=== PATIENT | female | born 1935 | race Native Hawaiian/Other Pacific Islander ===

== ENCOUNTER 2016-11-09 09:49 | Emergency (ER) | payer MEDICARE, BC ==
[2016-11-09 10:46] VITALS: TEMP 97.6
--- NOTE | 2016-11-09 12:00 | C.PDOC ---
History Of Present Illness 81 yr old female with PMHx of HTN, presents to the ER for evaluation of cough for the past few days and runny nose which turned into blood today. Patient also reports of chills since yesterday. Patient states she feels pain in her abdomen when she coughs. Patient denies fever, chest pain, SOB, nausea, vomiting , diarrhea, headache, weakness or numbness. Time Seen by Provider: 11/09/16 10:55 Chief Complaint (Nursing): ENT Problem History Per: Patient History/Exam Limitations: None Onset/Duration Of Symptoms: Days (Few) Current Symptoms Are (Timing): Still Present Past Medical History Reviewed: Historical Data, Nursing Documentation, Vital Signs Vital Signs: Last Vital Signs Temp 97.6 F 11/09/16 10:42 Pulse 80 11/09/16 12:28 Resp 20 11/09/16 12:28 BP 120/62 11/09/16 12:28 Pulse Ox 96 11/09/16 12:34 - Medical History PMH: Arthritis, HTN, Osteoporosis - [facility] Procedures ANT NASAL PACK FOR EPIST (11/18/14) Family History: States: No Known Family Hx - Social History Hx Tobacco Use: No Hx Alcohol Use: No Hx Substance Use: No - Immunization History Hx Tetanus Toxoid Vaccination: No Hx Influenza Vaccination: Yes Hx Pneumococcal Vaccination: No Review Of Systems Except As Marked, All Systems Reviewed And Found Negative. Constitutional: Positive for: Chills. Negative for: Fever ENT: Positive for: Other (Bleeding from the nose) Cardiovascular: Negative for: Chest Pain Respiratory: Positive for: Cough. Negative for: Shortness of Breath Gastrointestinal: Positive for: Abdominal Pain. Negative for: Nausea, Vomiting , Diarrhea Neurological: Negative for: Weakness, Numbness, Headache Physical Exam - Physical Exam Appears: Well, Non-toxic, No Acute Distress Skin: Warm, Dry Head: Atraumatic, Normacephalic Nose: Epistaxis Oral Mucosa: Moist Neck: Normal, Normal ROM, Supple Chest: Symmetrical, No Tenderness Cardiovascular: Rhythm Regular, No Murmur Respiratory: Normal Breath Sounds, No Rales, No Rhonchi, No Stridor, No Wheezing Extremity: Normal ROM, No Swelling Neurological/Psych: Oriented x3, Normal Speech, Normal Motor ED Course And Treatment O2 Sat by Pulse Oximetry: 96 - Other Rad CXR X-Ray: Viewed By Me, Read By Radiologist Interpretation: HISTORY: cough. COMPARISON: None available. TECHNIQUE: Chest PA and lateral. FINDINGS: LUNGS: Subtle infiltrate in the right lower lobe. Please note that chest x-ray has limited sensitivity for the detection of pulmonary masses. PLEURA: No significant pleural effusion identified. No definite pneumothorax . CARDIOVASCULAR: Heart size appears within normal limits. Atherosclerotic calcifications of the aorta. OSSEOUS STRUCTURES: Osseous demineralization. Degenerative changes. VISUALIZED UPPER ABDOMEN: Unremarkable. OTHER FINDINGS: None. IMPRESSION: Subtle infiltrate in the right lower lobe. Recommend follow-up to ensure complete resolution. Medical Decision Making Medical Decision Making: PLAN: * CXR * Tessalon Perles PO * Tylenol PO Disposition Counseled Patient/Family Regarding: Studies Performed, Diagnosis, Need For Followup, Rx Given - Disposition Disposition: HOME/ ROUTINE Disposition Time: 12:01 Condition: STABLE Additional Instructions: Take medication for the cough. Follow up with your doctor. Leave the gauze in your nose for a few more hours. Prescriptions: 0.9 % Sodium Chloride [Nasal Mist] 126 ml NS QID #1 bottle Benzonatate [Tessalon Perles] 200 mg PO TID #24 sgl Instructions: Viral Syndrome (ED) Forms: General Discharge Instructions - POA Present On Arrival: None - Clinical Impression Clinical Impression: Epistaxis, Viral syndrome - Scribe Statement The provider has reviewed the documentation as recorded by the Peteribe Luzma Smith Provider Attestation: All medical record entries made by the Peteribe were at my direction and personally dictated by me. I have reviewed the chart and agree that the record accurately reflects my personal performance of the history, physical exam, medical decision making, and the department course for this patient. I have also personally directed, reviewed, and agree with the discharge instructions and disposition.
--- NOTE | 2016-11-09 12:05 | RAD ---
HISTORY: cough COMPARISON: None available. TECHNIQUE: Chest PA and lateral FINDINGS: LUNGS: Subtle infiltrate in the right lower lobe. Please note that chest x-ray has limited sensitivity for the detection of pulmonary masses. PLEURA: No significant pleural effusion identified. No definite pneumothorax . CARDIOVASCULAR: Heart size appears within normal limits. Atherosclerotic calcifications of the aorta. OSSEOUS STRUCTURES: Osseous demineralization. Degenerative changes. VISUALIZED UPPER ABDOMEN: Unremarkable. OTHER FINDINGS: None. IMPRESSION: Subtle infiltrate in the right lower lobe. Recommend follow-up to ensure complete resolution.
[2016-11-09 12:28] VITALS: BP 120/62; PULSE 80; RESP 20
[2016-11-09 12:34] VITALS: O2SAT 96
== END 2016-11-09 12:42 | disposition home or self-care (01) ==
LOC: C.ER 09:49
DX: R04.0 Epistaxis (principal); B34.9 Viral infection, unspecified

== ENCOUNTER 2017-10-08 07:29 | Day surgery (SDC) | payer MEDICARE, BC ==
[2017-10-07 16:35] VITALS: BMI 29.0
[2017-10-08 08:01] LABS: BASO % 0.8 % (0.0-2.0); EOS # 0.1 K/uL (0.0-0.7); EOS % 2.2 % (0.0-4.0); HEMOGLOBIN 12.3 g/dL (11.0-16.0); LYMPH # 1.4 K/uL (1.0-4.3); LYMPH % 32.3 % (20.0-40.0); MEAN CELL VOLUME 89.6 fL (81.0-99.0); MEAN CORPUSCULAR HEMOGLOBIN 30.6 pg (27.0-31.0); MEAN CORPUSCULAR HGB CONC 34.2 g/dL (33.0-37.0); MEAN PLATELET VOLUME 11.2 fL (7.2-11.7); MONO # 0.6 K/uL (0.0-0.8); NEUT # 2.3 K/uL (1.8-7.0); NEUT % 50.7 % (50.0-75.0); NRBC % 0.1 % (0.0-2.0); RBC 4.02 Mil/uL (3.80-5.20); RED CELL DISTRIBUTION WIDTH 13.2 % (11.5-14.5); WHITE BLOOD COUNT 4.5 K/uL (4.8-10.8)
[2017-10-08 08:11] LABS: BLOOD UREA NITROGEN 9 mg/dL (7-17); CALCIUM 9.5 mg/dl (8.6-10.4); GFR AFRICAN-AMERICAN > 60; GFR NON-AFRICAN AMERICAN > 60
[2017-10-08 08:42] LABS: PROTHROMBIN TIME 11.4 SECONDS (9.7-12.2)
[2017-10-08] MEDS ORDERED: Midazolam 2 MG/2 ML VIAL ONE (09:27)
[2017-10-08] MEDS ORDERED: Iodixanol 320 MG/ML 200 ML BOTTLE IV ONE (09:28)
[2017-10-08] MEDS ORDERED: Verapamil 2 ML ONE (11:10)
[2017-10-08 11:49] LABS: VENOUS BLOOD GAS BASE EXCESS -1.7 mmol/L (0.0-2.0); VENOUS BLOOD GAS PCO2 38 mmHg (40-60); VENOUS BLOOD GAS PO2 34 mm/Hg (30-55); VENOUS BLOOD PH 7.39 (7.32-7.43)
[2017-10-08 11:53] LABS: ARTERIAL BLOOD GAS HCO3 23.8 mmol/L (21-28); ARTERIAL BLOOD GAS HEMOGLOBIN 10.8 g/dL (11.7-17.4); ARTERIAL BLOOD GAS O2 SAT 97.2 % (95-98); ARTERIAL BLOOD GAS PCO2 35 mm/Hg (35-45); ARTERIAL BLOOD GAS PH 7.42 (7.35-7.45); ARTERIAL BLOOD GAS PO2 75 mm/Hg (80-100); ARTERIAL BLOOD GAS TCO2 23.8 mmol/L (22-28)
[2017-10-08] MEDS ORDERED: Sodium Chloride 0.9% 500 ML IV SCH (12:15)
[2017-10-08 13:24] LABS: HDL CHOLESTEROL 45 mg/dL (30-70)
[2017-10-08 13:35] LABS: LDL CHOLESTEROL 176 mg/dL (0-129)
--- NOTE | 2017-10-08 23:32 | CARD ---
APPROVED REPORT EXAM: Two-dimensional and M-mode echocardiogram with Doppler and color Doppler. Other Information Quality : GoodRhythm : INDICATION Dyspnea 2D DIMENSIONS IVSd1.1 (0.7-1.1cm)LVDd4.0 (3.9-5.9cm) LVOT Diameter2.0 (1.8-2.4cm)PWd1.2 (0.7-1.1cm) LVDs2.7 (2.5-4.0cm)FS (%) 31.4 % LVEF (%)59.9 (>50%) M-Mode DIMENSIONS Left Atrium (MM)3.50 (2.5-4.0cm)Aortic Root2.63 (2.2-3.7cm) Aortic Valve AoV Peak Yelepipx159.5cm/sAoV RBW844.6cmAO Peak GR.84mmHg LVOT Peak Mdrtkgml71.7cm/sLVOT VTI21.62cmAO Mean GR.57mmHg ANKITA (VMAX)0.82db2EMQ (VTI)0.50dg0DJ P 1/2 Emvd486rp Mitral Valve MV E Tjubahgs030.3cm/sMV E Peak Gr.17mmHgMV A Sjjpwkgb406.7cm/s MV E Mean Gr.9mmHgMV DZB09rjC/A ratio1.1 MVA (PHT)2.74cm2 TDI E/Lateral E'0.0E/Medial E'0.0 Tricuspid Valve TR Peak Mvyspijx051tb/sTR Peak Gr.94xsQmOVYA14pgIl LEFT VENTRICLE The left ventricle is normal size. There is borderline concentric left ventricular hypertrophy. Left ventricle systolic function is normal. The Ejection Fraction is 55-60%. There is normal LV segmental wall motion. The left ventricular diastolic function is normal. No left ventricle thrombus noted on this study. RIGHT VENTRICLE The right ventricle is normal size. The right ventricular systolic function is normal. ATRIA The left atrium size is normal. The right atrium size is normal. AORTIC VALVE The aortic valve is severely calcified. There is mild aortic regurgitation. There is severe valvular aortic stenosis. Calculated aortic valve area is 0.6 cm2 with maximum pressure gradient of 84 mmHg and mean pressure gradient of 57 mmHg. Cannot exclude aortic valvular vegetation. MITRAL VALVE Mitral annular calcification is severe. The mitral valve leaflets are thickened and calcified. There is no evidence of mitral valve prolapse. There is mildly reduced mitral valve opening. Calculated mitral valve area is 2.74 cm2 with maximum pressure gradient of 17 mmHg and mean pressure gradient of 9 mmHg. Mitral regurgitation is mild to moderate. TRICUSPID VALVE The tricuspid valve is normal. There is mild to moderate tricuspid regurgitation. Right ventricular systolic pressure is estimated at 40-50 mmHg. There is mild-moderate pulmonary hypertension. There is no tricuspid valve prolapse or vegetation. There is no tricuspid valve stenosis. PULMONIC VALVE The pulmonic valve is not well visualized. There is trace to mild pulmonic valvular regurgitation. GREAT VESSELS The aortic root is normal in size. The IVC is normal in size and collapses >50% with inspiration. PERICARDIAL EFFUSION There is no pericardial effusion. There is no pleural effusion. <Conclusion> The left ventricle is normal size. There is borderline concentric left ventricular hypertrophy. Left ventricle systolic function is normal. The Ejection Fraction is 55-60%. The left ventricular diastolic function is normal. The left and atrium size is normal. There is mild aortic regurgitation. There is critical valvular aortic stenosis. Calculated aortic valve area is 0.6 cm2 with maximum pressure gradient of 84 mmHg and mean pressure gradient of 57 mmHg. There is mild to moderate tricuspid regurgitation. There is mildly reduced mitral valve opening. Mitral regurgitation is mild to moderate. There is mild-moderate pulmonary hypertension. There is trace to mild pulmonic valvular regurgitation.
--- NOTE | 2017-10-11 07:58 | CARDCATH ---
PROCEDURE DATE: 10/08/2017 PROCEDURES: 1. Right heart catheterization. 2. Coronary angiogram. CLINICAL INDICATION: 1. Critical symptomatic aortic stenosis. 2. Dyspnea on minimal exertion. 3. Angina. 4. Hypertension. 5. Hyperlipidemia. REFERRING PHYSICIAN: Dr. Jeremías Covington. PERFORMING PHYSICIAN: Dr. Kiran Piña. PROCEDURE IN DETAIL: After informed consent, the patient was prepped and draped in the usual sterile fashion. Lidocaine 2% was given in the right wrist and right antecubital area for local anesthesia. Using micropuncture technique, 6-[place] sheath was introduced into right radial artery. A 7-[place] sheath was introduced into right brachial vein. A 6-inch JL4 diagnostic catheter engaged into left main coronary artery. Contrast injection and left coronary angiogram was performed. JR4 6-inch diagnostic catheter engaged into right coronary artery. Contrast injected and right coronary arteriogram was performed. Using [place] catheter, right heart catheterization was performed. The patient tolerated the procedure well. Postprocedure, Terumo radial band applied to right wrist with excellent hemostasis. Findings of the left heart catheterization, 1. Left main coronary artery is patent. 2. Proximal and distal LAD and diagonal branches are patent. Mid LAD has a nonobstructive 50% stenosis. 3. Left circumflex is codominant system. Left circumflex and obtuse marginal branches are patent. 4. Right coronary artery is codominant system. Ostial right coronary artery has a 90% stenosis. Mid and distal right coronary artery is patent. Findings of the right heart catheterization, 1. PA pressure in mmHg, RA 10, RV 48/14, PA 54/27, mean of 41, PCW 28. 2. Saturation percentage, PA 68.9%, aorta 97.2%. Calculations: Cardiac output 3.24 liters per minute, cardiac index 2.26. IMPRESSION: 1. Single vessel coronary artery disease as described above. Right coronary artery with ostial 90% stenosis, distal mid LAD has 50% stenosis. 2. Moderate pulmonary hypertension. 3. Critical aortic stenosis by 2D echocardiogram. Aortic valve area is 0.6 sq cm by continuity equation on the echo. Kiran Piña MD [facility] # [id number]
== END 2017-10-08 16:45 | disposition home or self-care (01) ==
LOC: C.CATHLAB 07:29
PROVIDERS: ATTEND Internal Medicine Cardiovascular Disease
DX: I25.119 Atherosclerotic heart disease of native coronary artery with unspecified angina pectoris (principal); I35.0 Nonrheumatic aortic (valve) stenosis; I27.20 Pulmonary hypertension, unspecified; I10 Essential (primary) hypertension; E78.5 Hyperlipidemia, unspecified; Z79.899 Other long term (current) drug therapy; Z88.0 Allergy status to penicillin; Z88.6 Allergy status to analgesic agent
CPT/HCPCS: 36415; 36600; 80048; 80061; 82803; 83036; 85025; 85610; 85730; 93306; 93453; C1766; C1769; C1887; C1893; C1894; J1644; J2001; J2250; J3010; J7040; Q9966

== ENCOUNTER 2018-11-01 09:40 | Outpatient (CLI) | payer MEDICARE | END 2018-11-01 09:41 | disposition home or self-care (01) | LOC: C.DEXAIC 09:40 | DX: R10.9 Unspecified abdominal pain (principal); R42 Dizziness and giddiness; I50.9 Heart failure, unspecified; R06.02 Shortness of breath ==